=== PATIENT | female | born 1985 | race Caucasian/White ===

== ENCOUNTER 2018-11-09 16:57 | Emergency (ER) | payer SELFPAY ==
[~2018-11-09] VITALS: Wt 72.0 kg
[2018-11-09] MEDS ORDERED: ONDANSETRON (ODT) 4 MG TAB ODT STA (17:45)
[2018-11-09] MEDS ORDERED: CEPH-443 PO (19:41)
[2018-11-09] MEDS ORDERED: METO10TA92 PO (19:42)
--- NOTE | 2018-11-09 19:46 | ERD ---
ER Documentation Chief Complaint Chief Complaint N/V/D X 1 WEEK HPI This is a 32-year-old female who states she has had nausea vomiting and diarrhea for 1 week. No difference with food. Occasionally she has epigastric pain. No fever. No dysuria hematuria but does have increased urinary frequency. Does not think she is but she is not sure. Last menstrual period was 2 months ago. ROS All systems reviewed and are negative except as per history of present illness. Medications Home Meds Active Scripts Metoclopramide* (Reglan*) 10 Mg Tablet, 10 MG PO Q6 PRN for NAUSEA AND/OR VOMITING, #10 TAB Prov:DEMETRIUS AYALA PA-C 11/09/18 Cephalexin* (Keflex*) 500 Mg Capsule, 500 MG PO TID for 5 Days, CAP Prov:DEMETRIUS AYALA PA-C 11/09/18 Allergies Allergies: Coded Allergies: No Known Allergy (Unverified , 11/09/18) PMhx/Soc Medical and Surgical Hx: pt denies Medical Hx, pt denies Surgical Hx Hx Alcohol Use: No Hx Substance Use: No Hx Tobacco Use: No Smoking Status: Never smoker FmHx Family History: No diabetes Physical Exam Vitals Vital Signs Date Temp Pulse Resp B/P (MAP) Pulse Ox O2 O2 Flow FiO2 Time Delivery Rate 11/09/18 98.1 71 18 137/75 99 17:01 (95) Physical Exam INITIAL VITAL SIGNS: Reviewed by me GENERAL: Awake, alert and oriented x 4, well appearing, nontoxic, speaking in full sentences. No acute distress HEAD: Atraumatic NECK: Supple. No masses. Full range of motion. No meningismus. No midline tenderness. RESPIRATORY: Clear to auscultation bilaterally. Symmetric chest wall rise. No wheezing or rales. No accessory muscle use. CV: Regular rate and rhythm. No murmurs, rubs, or gallops. ABDOMEN: Soft, non-distended. Nontender. Negative [place]. Negative [place] point tenderness. No CVA tenderness bilaterally. No guarding. No rebound. Result Diagram: 11/09/18175611/[id number]/181756 Results 24 hrs Laboratory Tests Test 11/09/18 17:56 11/09/18 17:57 11/09/18 17:58 Urine Color YELLOW Urine Clarity SLIGHTLY CLOUDY Urine pH 5.0 Urine Specific [place] 1.020 Urine Ketones NEGATIVE mg/dL Urine Nitrite NEGATIVE mg/dL Urine Bilirubin NEGATIVE mg/dL Urine Urobilinogen NEGATIVE mg/dL Urine Leukocyte Esterase 2+ Freddy/ul Urine Microscopic RBC 5 /HPF Urine Microscopic WBC 7 /HPF Urine Squamous Epithelial Cells FEW /HPF Urine Hemoglobin 1+ mg/dL Urine Glucose NEGATIVE mg/dL Urine Total Protein NEGATIVE mg/dl White Blood Count 8.5 10^3/ul Red Blood Count 4.78 10^6/ul Hemoglobin 13.3 g/dl Hematocrit 40.6 % Mean Corpuscular Volume 84.9 fl Mean Corpuscular Hemoglobin 27.8 pg Mean Corpuscular 32.8 g/dl Hemoglobin Concent Red Cell Distribution Width 13.2 % Platelet Count 241 10^3/UL Mean Platelet Volume 11.4 fl Immature Granulocytes % 0.100 % Neutrophils % 65.4 % Lymphocytes % 26.3 % Monocytes % 6.1 % Eosinophils % 1.5 % Basophils % 0.6 % Nucleated Red Blood Cells % 0.0 /100WBC Immature Granulocytes # 0.010 10^3/ul Neutrophils # 5.5 10^3/ul Lymphocytes # 2.2 10^3/ul Monocytes # 0.5 10^3/ul Eosinophils # 0.1 10^3/ul Basophils # 0.1 10^3/ul Nucleated Red Blood Cells # 0.0 10^3/ul Sodium Level 140 mmol/L Potassium Level 4.2 mmol/L Chloride Level 106 mmol/L Carbon Dioxide Level 24 mmol/L Anion Gap 10 Blood Urea Nitrogen 8 mg/dl Creatinine 0.64 mg/dl Est Glomerular Filtrat > 60 mL/min Rate mL/min Glucose Level 96 mg/dl Calcium Level 10.1 mg/dl Total Bilirubin 0.1 mg/dl Direct Bilirubin 0.00 mg/dl Indirect Bilirubin 0.1 mg/dl Aspartate Amino 14 IU/L Transf (AST/SGOT) Alanine 11 IU/L Aminotransferase (ALT/SGPT) Alkaline Phosphatase 79 IU/L Total Protein 7.9 g/dl Albumin 4.1 g/dl Globulin 3.80 g/dl Albumin/Globulin Ratio 1.07 Lipase 70 U/L POC Beta HCG, Qualitative POSITIVE Current Medications Medications Dose Sig/Musa Start Time Status Last (Trade) Ordered Route PRN Stop Time Admin Dose Reason Admin Ondansetron 4 mg ONCE STAT 11/09/18 DC 11/09/18 HCl (Zofran ODT 17:45 18:04 Odt) 11/09/18 17:46 Procedures/MDM [facility] is here with nausea and vomiting. She has newly diagnosed which was diagnosed today and she was informed. OB labs and ultrasound were ordered. She is about 7 weeks 6 days. No evidence of ectopic. She does have a urinary tract infection will be treated with Keflex she was given outpatient PROGRAMMER OR ANALYST follow-up. Patient counseled regarding my diagnostic impression and care plan. Prior to discharge all questions answered. Pt agrees with treatment plan and understands strict return precautions. Pt is instructed to follow up with primary care provider within 24-48 hours. Precautionary instructions provided including instructions to return to the ER if not improving or for any worsening or changing symptoms or concerns. Departure Diagnosis: Primary Impression: Cystitis Additional Impression: Condition: Stable Patient Instructions: Cystitis, Abdominal Pain, Early Referrals: PROGRAMMER OR ANALYST [place] [address] [facility] [address] [place] [address] [address] [place] [address] [facility] [address] [place] [address] [facility] [address] [facility], [address], [facility] [address] [address] [address] [place] [address] [facility] [address] [place] [address] [phone] [address] [facility] [id number] - [address], [facility] [address] [place] [address] [facility] [address], [facility] [address] [address], [place] [address] [place] [address] Additional Instructions: Llame al doctor MAANA y lady baylee AVA PARA DENTRO DE 1-2 VELEZ.Dgale a la secretaria que nosotros le instruimos hacer esta ava.Avise o llame si mcelroy condicin se empeora antes de la ava. Regresa aqui si peor o no mejor. DEMETRIUS AYALA PA-C Nov 09, 2018 19:46
[2018-11-09 20:21] VITALS: BP 122/75; PULSE 72; RESP 16
== END 2018-11-09 20:23 | disposition home or self-care (01) ==
LOC: FTE 16:57
DX: N30.90 Cystitis, unspecified without hematuria (principal); Z33.1 Pregnant state, incidental
CPT/HCPCS: 36415; 76801; 76817; 80053; 81001; 81025; 83690; 84702; 85025; 86900; 86901